=== PATIENT | female | born 1970 | race Caucasian/White ===

== ENCOUNTER 2020-04-15 14:23 | Emergency (ER) | payer MEDICARE ==
[~2020-04-15] VITALS: Ht 165.1 cm; Wt 70.0 kg
[2020-04-15] MEDS ORDERED: NORCO, ANEXSIA 5/325MG TABLET (HYDROcodone/ACETAMINOPHEN) PO ONE (15:15)
[2020-04-15] MEDS ORDERED: TRAZ-189 PO (15:55)
[2020-04-15] MEDS ORDERED: BACL10TA2 PO (15:55)
[2020-04-15] MEDS ORDERED: CITA40TA4 PO (15:55)
[2020-04-15] MEDS ORDERED: BUPR1TAB52 PO (15:55)
[2020-04-15] MEDS ORDERED: OMEP-221 PO (15:55)
[2020-04-15] MEDS ORDERED: FURO20TA2 PO (15:55)
[2020-04-15] MEDS ORDERED: LEVO75TA4 PO (15:55)
[2020-04-15] MEDS ORDERED: MIRA0.254 PO (15:55)
[2020-04-15] MEDS ORDERED: ONDA-83 PO (15:55)
[2020-04-15] MEDS ORDERED: CREO6000 PO (15:55)
[2020-04-15] MEDS ORDERED: OXYC1TAB23 PO (15:55)
[2020-04-15 16:20] VITALS: BP 157/74
--- NOTE | 2020-04-16 08:33 | REP ---
REASON: Pain after trauma. FINDINGS: No acute fracture or destructive osseous lesion. Electronically Signed by Bayron Barajas DO 04/16/2020 09:40 A
--- NOTE | 2020-04-16 08:57 | REP ---
REASON: Pain after trauma. COMPARISON: No priors. FINDINGS: Three views of the right shoulder were performed. The acromioclavicular and glenohumeral relationships are within normal limits. There is no acute fracture or destructive osseous lesions. Electronically Signed by Bayron Barajas DO 04/16/2020 09:40 A
--- NOTE | 2020-04-16 09:00 | REP ---
REASON: Pain after trauma. There is a fracture involving the base of the distal phalanx of the first digit with an intra-articular component. Marked degenerative changes are seen throughout the wrist. There appears to be an old healed Colles fracture. If the patient is experiencing additional pain in the wrist, I would recommend a four-view wrist series if clinically relevant. Electronically Signed by Bayron Barajas DO 04/16/2020 09:40 A
--- NOTE | 2020-04-16 09:04 | REP ---
REASON: Pain after trauma. There has been a total knee arthroplasty. The bones are demineralized. There is no acute fracture. Electronically Signed by Bayron Barajas DO 04/16/2020 09:40 A
== END 2020-04-15 16:20 | disposition home or self-care (01) ==
LOC: M ED 14:23
DX: S62.521A Displaced fracture of distal phalanx of right thumb, initial encounter for closed fracture (principal); S80.11XA Contusion of right lower leg, initial encounter; M25.511 Pain in right shoulder; W01.0XXA Fall on same level from slipping, tripping and stumbling without subsequent striking against object, initial encounter; Y92.018 Other place in single-family (private) house as the place of occurrence of the external cause; J45.909 Unspecified asthma, uncomplicated; Z88.0 Allergy status to penicillin; Z88.2 Allergy status to sulfonamides; Z91.040 Latex allergy status; Z79.899 Other long term (current) drug therapy